=== PATIENT | female | born 1970 | race Caucasian/White ===

== ENCOUNTER 2023-03-08 09:54 | Emergency (ER) | payer OTHER, SELFPAY ==
[2023-03-08 10:48] LABS: Hematocrit 22.7 % (34.9-44.5); Hemoglobin 7.3 g/dL (12.0-15.5); Mean Corpuscular HGB CONC 32.2 g/dL (32.0-36.0); Mean Corpuscular Volume 90.1 fl (81.6-98.3); Mean Platelet Volume 9.8 fl (7.4-10.4); Platelet Count 298 10x3/uL (150-450); RBC Distribution Width 20.2 % (11.5-14.5); Red Blood Cell (RBC) Count 2.52 10x6/uL (3.90-5.03); White Blood Cell (WBC) Count 20.2 10x3/uL (3.5-10.5)
[2023-03-08 10:58] LABS: INR-International Normal Ratio 1.2; PTT 33.9 sec (22.0-33.0); Prothrombin Time 12.5 sec (9.5-12.1)
[2023-03-08 11:00] LABS: MDiff Complete? YES
[2023-03-08 11:05] LABS: ALT (SGPT) 9 U/L (8-55); AST (SGOT) 26 U/L (5-34); Albumin 2.7 g/dL (3.5-5.0); Alkaline Phosphatase 452 U/L (40-110); Anion Gap 16 mmol/L (10-20); BUN (Urea Nitrogen) 18 mg/dL (9.8-20.1); Bilirubin, Total 0.2 mg/dL (0.2-1.2); Calc. Creatinine Clearance 0 mL/min (70-130); Calcium 8.2 mg/dL (7.8-10.44); Carbon Dioxide 20 mmol/L (22-29); Chloride 103 mmol/L (98-107); Estimated GFR 63; Globulin 3.4 g/dL (2.4-3.5); Glucose 98 mg/dL (70-105); Potassium 3.7 mmol/L (3.5-5.1); Protein, Total 6.1 g/dL (6.0-8.3); Sodium 135 mmol/L (136-145)
[2023-03-08 11:16] LABS: Band 3 % (5-11); Eosinophils 4 % (0-10); Lymphocytes 10 % (21-51); Monocytes 5 % (0-10); Neutrophil 78 % (42-75)
[2023-03-08 11:19] LABS: Anisocytosis SLIGHT = 6-15 cells (100X) (0-5/hpf); Platelet Adequacy Comment Appears Adequate
[2023-03-08] MEDS ORDERED: Morphine 4 MG/ML VIAL ONE (13:41)
== END 2023-03-08 13:53 | disposition home or self-care (01) ==
LOC: CSHERS 09:54
DX: S42.201A Unspecified fracture of upper end of right humerus, initial encounter for closed fracture (principal); C53.9 Malignant neoplasm of cervix uteri, unspecified; W18.30XA Fall on same level, unspecified, initial encounter
CPT/HCPCS: 70450; 80053; 85025; 85610; 85730; 96374; J2270

== ENCOUNTER 2023-03-09 00:08 | Emergency (ER) | payer SELFPAY ==
[2023-03-09] MEDS ORDERED: Morphine 2 MG/ML VIAL ONE ×2 (01:22→03:58)
[2023-03-09] MEDS ORDERED: Ondansetron PF 4 MG/2 ML Vial ONE (01:22)
[2023-03-09 01:37] LABS: Hemoglobin 7.1 g/dL (12.0-15.5); Mean Corpuscular HGB CONC 32.3 g/dL (32.0-36.0); Mean Corpuscular Hemoglobin 28.9 pg (27.0-33.0); Mean Corpuscular Volume 89.4 fl (81.6-98.3); Mean Platelet Volume 9.7 fl (7.4-10.4); Platelet Count 271 10x3/uL (150-450); RBC Distribution Width 20.1 % (11.5-14.5); Red Blood Cell (RBC) Count 2.46 10x6/uL (3.90-5.03); White Blood Cell (WBC) Count 13.9 10x3/uL (3.5-10.5)
[2023-03-09 01:42] LABS: MDiff Complete? YES
[2023-03-09 01:45] LABS: Anion Gap 16 mmol/L (10-20); BUN (Urea Nitrogen) 19 mg/dL (9.8-20.1); Calc. Creatinine Clearance 0 mL/min (70-130); Calcium 8.5 mg/dL (7.8-10.44); Carbon Dioxide 22 mmol/L (22-29); Chloride 104 mmol/L (98-107); Estimated GFR 65; Glucose 101 mg/dL (70-105); Potassium 3.8 mmol/L (3.5-5.1); Sodium 138 mmol/L (136-145)
[2023-03-09 02:02] LABS: Band 9 % (5-11); Eosinophils 3 % (0-10); Lymphocytes 7 % (21-51); Monocytes 1 % (0-10); Neutrophil 80 % (42-75)
[2023-03-09 02:03] LABS: Platelet Adequacy Comment Appears Adequate; RBC Morph Comment Within Normal Limits
[2023-03-09] MEDS ORDERED: HYDROcodone/Acetaminophen 10/325 mg Tablet PO PRN (08:56)
[2023-03-09] MEDS ORDERED: Apixaban 5 MG TAB PO SCH (09:00)
[2023-03-09] MEDS ORDERED: Morphine ER 15 MG TAB PO SCH (09:00)
== END 2023-03-09 04:27 | disposition short-term general hospital (02) ==
LOC: CSHERS 00:08
DX: S42.201A Unspecified fracture of upper end of right humerus, initial encounter for closed fracture (principal); R53.1 Weakness; X58.XXXA Exposure to other specified factors, initial encounter
CPT/HCPCS: 80048; 85025; 93005; 96374; 96375; 96376; J2272; J2405

== ENCOUNTER 2023-04-15 20:09 | Inpatient (IN) | payer OTHER, SELFPAY ==
[2023-04-15] MEDS ORDERED: Morphine 4 MG/ML VIAL ONE ×2 (20:33→22:09)
[2023-04-15] MEDS ORDERED: Ondansetron PF 4 MG/2 ML Vial ONE ×2 (20:34→22:09)
[2023-04-15 20:38] LABS: #Basophils 0.1 10x3/uL (0.0-0.2); #Monocytes 0.6 10x3/uL (0.0-1.1); #Neutrophils 8.8 10x3/uL (1.5-8.4); %Basophils 0.6 % (0.0-2.0); %Eosinophils 0.4 % (0.0-6.0); %Lymphocytes 6.2 % (18.0-47.0); %Monocytes 5.9 % (0.0-10.0); %Neutrophils 86.2 % (40.0-75.0); Hematocrit 33.6 % (34.9-44.5); Hemoglobin 10.8 g/dL (12.0-15.5); Mean Corpuscular HGB CONC 32.1 g/dL (32.0-36.0); Mean Corpuscular Hemoglobin 30.2 pg (27.0-33.0); Mean Corpuscular Volume 93.9 fl (81.6-98.3); Mean Platelet Volume 8.6 fl (7.4-10.4); Platelet Count 452 10x3/uL (150-450); RBC Distribution Width 18.3 % (11.5-14.5); Red Blood Cell (RBC) Count 3.58 10x6/uL (3.90-5.03); White Blood Cell (WBC) Count 10.2 10x3/uL (3.5-10.5)
[2023-04-15 20:44] LABS: Base Excess -5.8 mEq/L (-2 - +2); Calcium, Ionized (venous) 1.09 mmol/L (1.16-1.32); Chloride (VBG) 95 mmol/L (98-106); Hematocrit-VBG 36 % (36.0-47.0); Hemoglobin (Hb) 12.2 g/dL (11.7-16.0); Potassium (VBG) 4.54 mmol/L (3.70-5.30); Puncture Site Other Site; RapidComm Collect By CBN; Sodium 135.7 mmol/L (133-146); pH (venous) 7.391 (7.32-7.43)
[2023-04-15 20:53] LABS: ALT (SGPT) 7 U/L (8-55); AST (SGOT) 12 U/L (5-34); Albumin 3.8 g/dL (3.5-5.0); Alkaline Phosphatase 256 U/L (40-110); Anion Gap 28 mmol/L (10-20); Bilirubin, Total 0.4 mg/dL (0.2-1.2); Calc. Creatinine Clearance 0 mL/min (70-130); Calcium 9.6 mg/dL (7.8-10.44); Carbon Dioxide 20 mmol/L (22-29); Chloride 93 mmol/L (98-107); Estimated GFR 6; Globulin 4.1 g/dL (2.4-3.5); Glucose 111 mg/dL (70-105); Magnesium 2.6 mg/dL (1.6-2.6); Potassium 4.6 mmol/L (3.5-5.1); Protein, Total 7.9 g/dL (6.0-8.3); Sodium 136 mmol/L (136-145)
[2023-04-15 21:02] LABS: BUN (Urea Nitrogen) 126 mg/dL (9.8-20.1)
[2023-04-15 21:32] LABS: Bilirubin Neg (Negative); Blood, Urine 150 (Negative); Clarity Clear (Clear); Glucose, Urine (Dipstick) Normal (Negative); Ketone, Urine Negative (Negative); Leukocyte 500 (Negative); Nitrite Negative (Negative); Protein, Urine (Dipstick) 15 mg/dl (Neg-Trace); Urobilinogen Normal mg/dL (Less than 2)
[2023-04-15 22:00] LABS: Bacteria/HPF 1+ HPF (None Seen); CAUTI Indications for Culture Immunosuppressed; RBC/HPF 0-3 HPF (0-3); Squamous Epithelial 0-3 HPF (0-3)
[2023-04-15 22:01] LABS: Urine Culture Reflex Yes Yes
[2023-04-15] MEDS ORDERED: Acetaminophen 325 MG TAB PO PRN (22:05)
[2023-04-15] MEDS ORDERED: HYDROcodone/Acetaminophen 5/325 mg Tablet PO PRN (22:05)
[2023-04-15] MEDS ORDERED: Senokot S 8.6-50 MG TAB PO PRN (22:05)
[2023-04-15] MEDS ORDERED: ALPRAZolam 0.25 MG TAB PO PRN (22:11)
[2023-04-15] MEDS ORDERED: Dextrose 5 % And 0.9 % NaCl 1,000 ML IV SCH (22:15)
[2023-04-15 23:15] LABS: Lactic Acid 2.1 mmol/L (0.5-2.2)
[2023-04-16] MEDS: cefTRIAXone\\ROCEPHIN 1 GM in Sodium Chloride 0.9% 100 ML IVPB SCH (02:06)
[2023-04-16] MEDS: Morphine 2 MG/ML VIAL SLOW IVP PRN (02:07)
[2023-04-16 05:41] VITALS: BMI 20.9
[2023-04-16 06:15] LABS: Anion Gap 27 mmol/L (10-20); Calc. Creatinine Clearance 9 mL/min (70-130); Calcium 8.8 mg/dL (7.8-10.44); Carbon Dioxide 18 mmol/L (22-29); Chloride 97 mmol/L (98-107); Estimated GFR 6; Glucose 120 mg/dL (70-105); Potassium 4.8 mmol/L (3.5-5.1); Sodium 137 mmol/L (136-145)
[2023-04-16 06:24] LABS: BUN (Urea Nitrogen) 130 mg/dL (9.8-20.1)
[2023-04-16] MEDS: Morphine ER 15 MG TAB PO SCH ×2 (08:35→21:41)
[2023-04-16] MEDS: Docusate 100 MG CAP PO SCH ×2 (08:35→21:41)
[2023-04-16] MEDS: Ondansetron PF 4 MG/2 ML Vial IVP PRN (08:36)
[2023-04-16] MEDS: Promethazine HCl 25 MG/ML VIAL IM PRN ×2 (12:53→17:54)
[2023-04-17] MEDS: cefTRIAXone\\ROCEPHIN 1 GM in Sodium Chloride 0.9% 100 ML IVPB SCH ×2 (00:15→23:33)
[2023-04-17] MEDS: Docusate 100 MG CAP PO SCH ×2 (08:40→21:25)
[2023-04-17] MEDS ORDERED: Polyethylene Glycol 3350 17 GM Packet PO PRN (08:40)
[2023-04-17] MEDS: Morphine ER 15 MG TAB PO SCH (08:40)
[2023-04-17] MEDS: Ondansetron PF 4 MG/2 ML Vial IVP PRN ×2 (08:41→13:46)
[2023-04-17] MEDS ORDERED: Promethazine HCl 12.5 MG in Sodium Chloride 0.9% 50 ML IVPB PRN (09:27)
[2023-04-17] MEDS ORDERED: Dextrose 5 % And 0.9 % NaCl 1,000 ML IV SCH (09:30)
[2023-04-17] MEDS ORDERED: Sodium Bicarbonate 150 MEQ in Dextrose 5% in Water 1,000 ML IV SCH (10:00)
[2023-04-17] MEDS: Sodium Bicarbonate 150 MEQ, Admixture Fee 1 EACH in Dextrose 5% in Water 1,000 ML IV SCH (10:51)
[2023-04-17] MEDS: Morphine 2 MG/ML VIAL SLOW IVP PRN (13:48)
[2023-04-17] MEDS ORDERED: Naloxone HCl 0.4 mg/ml Vial IV PRN (18:29)
[2023-04-17] MEDS: Senokot S 8.6-50 MG TAB PO SCH (21:24)
[2023-04-17] MEDS: Folic Acid 1 MG TAB PO SCH (21:25)
[2023-04-17] MEDS: Multivit, Therapeutic 1 TAB PO SCH (21:25)
[2023-04-17] MEDS: Cyanocobalamin (Vitamin B-12) 1,000 MCG TAB PO SCH (21:25)
[2023-04-17] MEDS: Thiamine 100 MG TAB PO SCH (21:25)
[2023-04-18] MEDS: Sodium Bicarbonate 150 MEQ, Admixture Fee 1 EACH in Dextrose 5% in Water 1,000 ML IV SCH (01:41)
[2023-04-18 04:32] LABS: #Basophils 0.1 10x3/uL (0.0-0.2); #Eosinphils 0.1 10x3/uL (0.0-0.5); #Monocytes 0.8 10x3/uL (0.0-1.1); #Neutrophils 11.7 10x3/uL (1.5-8.4); %Basophils 0.4 % (0.0-2.0); %Eosinophils 0.5 % (0.0-6.0); %Lymphocytes 6.9 % (18.0-47.0); %Monocytes 5.7 % (0.0-10.0); %Neutrophils 85.7 % (40.0-75.0); Hematocrit 23.4 % (34.9-44.5); Hemoglobin 7.1 g/dL (12.0-15.5); Mean Corpuscular HGB CONC 30.3 g/dL (32.0-36.0); Mean Corpuscular Hemoglobin 30.2 pg (27.0-33.0); Mean Corpuscular Volume 99.6 fl (81.6-98.3); Mean Platelet Volume 9.4 fl (7.4-10.4); Platelet Count 374 10x3/uL (150-450); RBC Distribution Width 19.1 % (11.5-14.5); Red Blood Cell (RBC) Count 2.35 10x6/uL (3.90-5.03); White Blood Cell (WBC) Count 13.6 10x3/uL (3.5-10.5)
[2023-04-18 04:41] LABS: ALT (SGPT) 23 U/L (8-55); AST (SGOT) 30 U/L (5-34); Albumin 3.4 g/dL (3.5-5.0); Alkaline Phosphatase 262 U/L (40-110); Anion Gap 26 mmol/L (10-20); BUN (Urea Nitrogen) 121 mg/dL (9.8-20.1); Bilirubin, Total 0.3 mg/dL (0.2-1.2); Calc. Creatinine Clearance 12 mL/min (70-130); Calcium 9.1 mg/dL (7.8-10.44); Carbon Dioxide 21 mmol/L (22-29); Chloride 98 mmol/L (98-107); Estimated GFR 9; Globulin 3.5 g/dL (2.4-3.5); Glucose 102 mg/dL (70-105); Protein, Total 6.9 g/dL (6.0-8.3); Sodium 141 mmol/L (136-145)
[2023-04-18] MEDS: Senokot S 8.6-50 MG TAB PO SCH ×2 (08:00→21:04)
[2023-04-18] MEDS: Docusate 100 MG CAP PO SCH (08:00)
[2023-04-18] MEDS ORDERED: Promethazine HCl 25 MG/ML VIAL IM PRN (09:18)
[2023-04-18 13:25] LABS: Hematocrit 22.6 % (34.9-44.5); Hemoglobin 6.9 g/dL (12.0-15.5); Platelet Count 385 10x3/uL (150-450)
[2023-04-18] MEDS: Folic Acid 1 MG TAB PO SCH (21:03)
[2023-04-18] MEDS: Multivit, Therapeutic 1 TAB PO SCH (21:03)
[2023-04-18] MEDS: Cyanocobalamin (Vitamin B-12) 1,000 MCG TAB PO SCH (21:03)
[2023-04-18] MEDS: Thiamine 100 MG TAB PO SCH (21:05)
[2023-04-19] MEDS: cefTRIAXone\\ROCEPHIN 1 GM in Sodium Chloride 0.9% 100 ML IVPB SCH (00:59)
[2023-04-19 04:22] LABS: Anion Gap 25 mmol/L (10-20); BUN (Urea Nitrogen) 102 mg/dL (9.8-20.1); Calc. Creatinine Clearance 17 mL/min (70-130); Calcium 8.8 mg/dL (7.8-10.44); Carbon Dioxide 23 mmol/L (22-29); Chloride 98 mmol/L (98-107); Estimated GFR 13; Glucose 108 mg/dL (70-105); Potassium 3.2 mmol/L (3.5-5.1); Sodium 143 mmol/L (136-145)
[2023-04-19 04:34] LABS: Mean Corpuscular Volume 96.1 fl (81.6-98.3)
[2023-04-19 04:36] LABS: #Basophils 0.1 10x3/uL (0.0-0.2); #Eosinphils 0.2 10x3/uL (0.0-0.5); #Monocytes 1.3 10x3/uL (0.0-1.1); #Neutrophils 17.3 10x3/uL (1.5-8.4); %Basophils 0.3 % (0.0-2.0); %Eosinophils 0.9 % (0.0-6.0); %Lymphocytes 5.8 % (18.0-47.0); %Monocytes 6.3 % (0.0-10.0); %Neutrophils 86.1 % (40.0-75.0); Hematocrit 27.4 % (34.9-44.5); Hemoglobin 8.8 g/dL (12.0-15.5); Mean Corpuscular HGB CONC 32.1 g/dL (32.0-36.0); Mean Corpuscular Hemoglobin 30.9 pg (27.0-33.0); Mean Platelet Volume 9.4 fl (7.4-10.4); Platelet Count 382 10x3/uL (150-450); RBC Distribution Width 18.1 % (11.5-14.5); Red Blood Cell (RBC) Count 2.85 10x6/uL (3.90-5.03); White Blood Cell (WBC) Count 20.1 10x3/uL (3.5-10.5)
[2023-04-19] MEDS ORDERED: Potassium Chloride 20 MEQ TAB PO SCH (08:00)
[2023-04-19] MEDS: Senokot S 8.6-50 MG TAB PO SCH (10:24)
[2023-04-19 12:24] VITALS: BP 131/66; TEMP 97.7
== END 2023-04-19 13:34 | disposition hospice, home (50) | DRG 683 ==
LOC: CSHERS 20:09 → CSHTELE 23:00 → OBSVTOIN 04-17 09:30
PROVIDERS: ADMIT Student in an Organized Health Care Education/Training Program; ATTEND Internal Medicine
PROC: 4A043R1 Measurement of Venous Saturation, Peripheral, Percutaneous Approach (ICD-10-PCS; 2023-04-15)
PROC: 30233N1 Transfusion of Nonautologous Red Blood Cells into Peripheral Vein, Percutaneous Approach (ICD-10-PCS; principal; 2023-04-18)
DX: N17.9 Acute kidney failure, unspecified (principal); C56.3 Malignant neoplasm of bilateral ovaries; E87.20 Acidosis, unspecified; I82.403 Acute embolism and thrombosis of unspecified deep veins of lower extremity, bilateral; C78.7 Secondary malignant neoplasm of liver and intrahepatic bile duct; D62 Acute posthemorrhagic anemia; N13.9 Obstructive and reflux uropathy, unspecified; N13.6 Pyonephrosis; K59.00 Constipation, unspecified; D63.8 Anemia in other chronic diseases classified elsewhere; Z51.5 Encounter for palliative care; Z66 Do not resuscitate; Z71.89 Other specified counseling; N18.9 Chronic kidney disease, unspecified; C53.9 Malignant neoplasm of cervix uteri, unspecified
CPT/HCPCS: 36415; 36430; 71250; 74177; 80048; 80053; 81001; 82805; 83605; 83735; 85025; 86850; 86900; 86901; 87086; 96372; 96375; 96376; G0378; J0696; J2270; J2272; J2405; J2550; J3490; J7042; J7070; P9016